=== PATIENT | male | born 1945 ===

== ENCOUNTER 2019-11-14 09:38 | Emergency (ER) | payer OTHER ==
[~2019-11-14] VITALS: Ht 172.7 cm; Wt 85.3 kg
[2019-11-14 09:46] VITALS: Ht 172.7 cm; Wt 85.3 kg
[2019-11-14 10:20] VITALS: BP 115/58
== END 2019-11-14 10:20 | disposition home or self-care (01) ==
LOC: ED 09:38
DX: R04.0 Epistaxis (principal); I25.810 Atherosclerosis of coronary artery bypass graft(s) without angina pectoris